=== PATIENT | female | born 1950 | race Caucasian/White ===

== ENCOUNTER 2024-02-13 20:57 | Emergency (ER) | payer OTHER, SELFPAY ==
[2024-02-13] VITALS (11 sets, daily range): BP systolic 111–175; BP diastolic 81–99; PULSE 73–102; RESP 14–30; TEMP 36.7–36.9; O2SAT 89–98; BMI 25.7; BMI 24.9
--- NOTE | 2024-02-13 21:27 | EKG_ITS ---
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
--- NOTE | 2024-02-13 21:27 | XR_ITS ---
Examination: AP chest single view Technique: AP portable upright chest single view Exam date and time: February 13, 2024 2134 hrs. Indications: Coughing shortness of breath today. Findings: Normal heart size. No pneumonia or pulmonary edema Moderate osteopenia Impression: No pneumonia identified
--- NOTE | 2024-02-13 21:28 | EDNOTE_ITS ---
ED General RME/HPI General Chief complaint: Shortness of Breath/Dyspnea Stated complaint: SHORTNESS OF BREATH Time Seen by Provider: 02/13/24 21:22 Arrival date/time: 02/13/24 20:57 CC: Shortness of breath HPI ongoing for 1 week with slow progression of severity. The patient states she sleeps upright in a [place] secondary to a bad back but states lately it has been benefiting for her shortness of breath as well. Patient denies fever but states that she has been feeling warm at home patient denies productive cough chest pain. Patient stopped smoking 1 week ago smoking approximately half to 1 pack a day. Related Data Previous Rx's ?Medication ?Instructions ?Recorded prednisone 50 mg tablet 50 mg PO QDAY #5 tabs 01/20/20 hydrocodone 5 mg-acetaminophen 325 1 tab PO Q8H PRN pain #10 tabs 09/16/22 mg tablet ofloxacin 0.3 % eye drops (Ocuflox) 2 drp ophthalmic (eye) QID #10 mL 09/16/22 prednisone 20 mg tablet See Taper PO BID 3 days #6 tabs 02/13/24 Allergies Allergy/AdvReac Type Severity Reaction Status Date / Time aspirin Allergy Severe Swelling Verified 12/22/23 15:35 of Lip/Tongue/Throat erythromycin base Allergy Severe Hives Verified 12/22/23 15:35 Penicillins Allergy Severe Hives Verified 12/22/23 15:35 Sulfa (Sulfonamide Allergy Verified 12/22/23 15:35 Antibiotics) Review of Systems Review of Systems Narrative Review of Systems: GEN: No fever, no chills, no weight loss EYES: No discharge, no visual changes, no pain HEENT: No ear pain, no congestion, no sore throat PULM: + shortness of breath, no cough, no congestion CV: No chest pain, no dyspnea on exertion, no palpitations GI: No nausea, no vomiting, no diarrhea, no pain, no constipation : No frequency, no urgency, no dysuria MUSC/SKEL: No joint pain, no back pain SKIN: No rash PSYCH: No hallucinations, no depression HEME/LYMPH: No easy bleeding or bruising tendencies NEURO: No weakness, no headache Past Medical History Past Medical History NEUROLOGIC: Negative Neurological Disorders, Cerebrovascular Accident or Alzheimer's Disease CARDIAC: Negative Cardiac Disorders, Myocardial Infarction, Angina or Congestive Heart Failure RESPIRATORY: Positive Chronic Obstructive Pulmonary Disease (COPD), Asthma and Pneumonia GASTROINTESTINAL: Negative Gastrointestinal Disorders, Liver Cancer or Pancreatic Cancer GENITOURINARY: Negative Genitourinary Disorders or Renal Disease REPRODUCTIVE: Positive Previous Pregnancies MUSCULOSKELETAL: Negative Musculoskeletal Disorders or Muscular Dystrophy ENT: Negative Blind or Deafness ENDOCRINE: Negative Endocrine Disorders, Diabetes Mellitus Type 1 or Diabetes Mellitus Type 2 OTHER HISTORY: Positive Cosmetic Surgery (HX breast reduction); Negative Down Syndrome or Developmental Delay Surgical History SURGICAL: Positive Hysterectomy Social History SMOKING STATUS: Current every day smoker ED Exam Narrative Physical exam: [General: In mild discomfort but not in any acute distress Head normocephalic HEENT: Within acceptable limits Neck is supple nontender Chest equal chest rise nontender to palpation Respiratory: Mild tachypnea, audible expiratory crackles, wheezing in the upper lobes. CV: Rate rhythm is regular no murmurs rubs or clicks Abdomen is distended secondary to body habitus soft nontender no masses positive bowel sounds all 4 quadrants Back: No CVA tenderness no spinous process tenderness from cervical spine thoracic and lumbar spine Skin: Intact no petechiae rash induration ulceration or crepitus Extremities: Moving all extremity against resistance cap refill less than 2 seconds neurosensory intact. No lower extremity edema Neuro: Awake alert oriented x3 Glascow coma 15 no focal deficits] Course Quality Measures none Orders Category Date Time Status EKG (ED ONLY) *Do not use* NOW Care 02/13/24 21:27 Completed EKG (ED Only) Stat Exams 02/13/24 21:27 Draft XR chest 1V Stat Exams 02/13/24 21:27 Completed B-Type Natriuretic Peptide Stat Lab 02/13/24 21:51 Completed CBC Stat Lab 02/13/24 21:51 Completed Comprehensive Metabolic Panel Stat Lab 02/13/24 21:51 Completed Drug Screen,Urine Stat Lab 02/13/24 01:49 Completed LDH (Lactate Dehydrogenase) Stat Lab 02/13/24 21:51 Completed Magnesium Stat Lab 02/13/24 21:51 Completed Partial Thromboplastin Time Stat Lab 02/13/24 21:51 Completed Prothrombin Time with INR Stat Lab 02/13/24 21:51 Completed Troponin I Stat Lab 02/13/24 21:51 Completed Urinalysis Stat Lab 02/13/24 01:49 Completed ALBUTEROL RT 0.5ml [Proventil Rt 0.5ml] Med 02/13/24 21:55 Discontinued 10 mg INH X1 ONE ALBUTEROL RT 0.5ml [Proventil Rt 0.5ml] Med 02/13/24 22:00 Discontinued 2.5 mg .ROUTE .STK-MED ONE ALBUTEROL RT 0.5ml [Proventil Rt 0.5ml] Med 02/13/24 21:51 Discontinued 5 mg INH X1 ONE ALBUTEROL RT 5 ml [Proventil Rt 5 ml] Med 02/13/24 21:27 Discontinued 5 mg INH X1 ONE Albuterol/Ipratr Rt Kimber [Duoneb Rt Kimber] Med 02/14/24 04:05 Discontinued 3 ml INH X1 ONE MethylPREDNISolone.* [SoluMEDROL Inj] Med 02/13/24 21:27 Discontinued 125 mg IVP X1 ONE Sodium Chloride Rt Kimber 0.9% [NS Rt Kimber 0.9%] Med 02/13/24 21:51 Discontinued 3 ml INH PRN PRN Sodium Chloride Rt Kimber 0.9% [NS Rt Kimber 0.9%] Med 02/13/24 21:55 Discontinued 3 ml INH PRN PRN Vital Signs Vital signs: Vital Signs Temperature 98.4 F 02/13/24 21:00 Pulse Rate 84 02/13/24 21:00 Respiratory Rate 20 02/13/24 21:00 Blood Pressure 175/81 H 02/13/24 21:00 Pulse Oximetry (%) 94 L 02/13/24 21:00 Oxygen Delivery Method Room Air 02/13/24 21:00 [facility] Patient data External records reviewed:: [facility] previous records and EMS form Clinical information provided by:: patient and EMS Social determinants that could affect healthcare access:: none Patient has the following chronic illnesses:: Cigarette smoking for the past 50+ years How is presenting disease/condition affected by chronic disease/condition?: e xacerbated by Evaluation data The following diagnostics were reviewed and interpreted by me:: lab results, radiology exam(s) and EKG tracing(s) Lab and/or radiology exams considered but not ordered:: CBC shows no significant leukocytosis anemia thrombocytopenia CMP shows no acute electrolyte imbalances renal impairment transaminitis or T. bili elevation Chest x-ray is inter by me read by radiology as negative for any acute finding. Interpretation Summary: COPD exacerbation Medications Medications considered but not ordered:: None Medication administrations:: Medication Administration History Discontinued Medications Albuterol (Albuterol Rt 25 Mg/5 Ml Nebu) 5 mg INH X1 ONE Stop: 02/13/24 21:28 Last Admin: 02/13/24 22:26 Dose: Not Given Documented By: JOAO Non-Admin Reason: Duplicate Medication on eMAR Albuterol (Albuterol Rt 2.5 Mg/0.5 Ml Nebu) 5 mg INH X1 ONE Stop: 02/13/24 21:52 Last Admin: 02/13/24 22:26 Dose: Not Given Documented By: JOAO Non-Admin Reason: Duplicate Medication on eMAR Albuterol (Albuterol Rt 2.5 Mg/0.5 Ml Nebu) 10 mg INH X1 ONE Stop: 02/13/24 21:56 Last Admin: 02/13/24 21:57 Dose: 10 mg Documented By: MALAIKA Albuterol (Albuterol Rt 2.5 Mg/0.5 Ml Nebu) Confirm Administered Dose 2.5 mg .ROUTE .STK-MED ONE Stop: 02/13/24 22:01 Last Admin: 02/13/24 22:10 Dose: Not Given Documented By: MALAIKA Non-Admin Reason: Other, see note Albuterol/Ipratropium (Albuterol/Ipratropium (Duoneb) Rt Kimber 3 Ml Nebu) 3 ml INH X1 ONE Stop: 02/14/24 04:06 Last Admin: 02/14/24 04:29 Dose: 3 ml Documented By: MALAIKA Methylprednisolone Sodium Succinate (Methylprednisolone Sod Succ 62.5 Mg/Ml 2ml Vial) 125 mg IVP X1 ONE Stop: 02/13/24 21:28 Last Admin: 02/13/24 21:48 Dose: 125 mg Documented By: JOAO Sodium Chloride (Sodium Chloride Rt Kimber 0.9% 3 Ml Nebu) 3 ml INH PRN PRN PRN Reason: SOLN Stop: 03/14/24 21:50 Sodium Chloride (Sodium Chloride Rt Kimber 0.9% 3 Ml Nebu) 3 ml INH PRN PRN PRN Reason: SOLN Stop: 03/14/24 21:54 None Consultations Consultation(s) initiated? (list below): No Diagnosis Differential Diagnosis ED Complaint MDM: Pneumonia COPD exacerbation CHF Most likely diagnosis given after review of the tests above:: COPD Admission Indicated Admission indicated?: not indicated Explain why admission is indicated or not indicated:: Stable for outpatient follow-up Admission Request Was there a request for admission?: No Disposition Plan Disposition Plan: Discharge Discharge Attestation Discharge Attestation: The patient and all family members were given an opportunity to ask questions and understood the discharge instructions. Discharge instructions specifically effects, indications for sooner follow up or return to the emergency department, and the expected course of current diagnosis. Patient condition: Stable Medical Decision Making Differential Diagnosis Differential Diagnosis: Pneumonia COPD exacerbation CHF Lab Data 02/13/24 21:51 02/13/24 21:51 Labs: Lab Results 02/13/24 02/13/24 Range/Units 01:49 21:51 WBC 7.8 (3.6-11.0) Thou/mm3 RBC 4.56 (4.00-5.20) Miln/mm3 Hgb 14.1 (12.0-16.0) g/dL Hct 39.6 (36.0-46.0) % MCV 87 (80-100) fL MCH 30.9 (25.0-35.0) pg MCHC 35.6 (31.0-37.0) g/dl RDW Std Deviation 40.4 (36.4-46.3) fL Plt Count 233 (140-440) Thou/mm3 Neut % (Auto) 48 (37-80) % Lymph % (Auto) 41 (10-50) % [place] % (Auto) 7 (0-12) % Eos % (Auto) 4 (0-10) % Baso % (Auto) 1 (0-2.5) % Neut # (Auto) 3.8 (1.8-7.7) Thou/mm3 Lymph # (Auto) 3.2 (1.0-4.8) Thou/mm3 [place] # (Auto) 0.5 (0.0-0.8) Thou/mm3 Eos # (Auto) 0.3 (0.0-0.5) Thou/mm3 Baso # (Auto) 0.1 (0.0-0.2) Thou/mm3 Immature Gran # (Auto) 0.03 H (0.00-0.00) Thou/mm3 Absolute Nucleated RBC 0.00 (0.00-0.00) Thou/mm3 Immature Gran % 0 (0-0) % Nucleated RBC % 0 (0) /100 WBC PT 10.9 (9.0-12.2) Seconds INR 1.0 (0.9-1.3) APTT 26.9 (22.0-36.0) Seconds Sodium 141 (136-145) mMol/L Potassium 3.7 (3.4-5.1) mMol/L Chloride 104 (98-107) mMol/L Carbon Dioxide 25.5 (20.0-31.0) mMol/L Anion Gap 12 (7-16) BUN 12 (9-23) mg/dL Creatinine 0.9 (0.6-1.3) mg/dL Estim Creat Clear Calc 52.0 L (>60) mL/min eGFR > 60 (60 - ) See Note BUN/Creatinine Ratio 13 (12-20) Ratio Glucose 121 H (74-106) mg/dL Calculated Osmolality 281 (275-295) Calcium 10.2 (8.3-10.6) mg/dL Corrected Calcium 10.2 H (8.5-10.1) mg/dL Magnesium 2.2 (1.6-2.6) mg/dL Total Bilirubin 0.5 (0.3-1.2) mg/dL AST 22 (0-34) U/L ALT 22 (10-49) U/L Alkaline Phosphatase 69 (46-116) U/L Lactate Dehydrogenase 204 (120-246) U/L Troponin I < 0.020 (0.0-0.045) ng/mL B-Natriuretic Peptide < 20 (0-100) pg/mL Total Protein 7.9 (5.7-8.2) gm/dL Albumin 4.6 (3.4-4.8) gm/dL Globulin 3.3 (2.3-3.5) gm/dL Albumin/Globulin Ratio 1.4 (1.2-2.2) Ur Collection Type Clean Catch Urine Color Lt-Yellow (Lt Yel-Yel) Urine Clarity Clear (Clear/Hazy) Urine pH 6.5 (5.0-7.0) Ur Specific [place] 1.026 (1.001-1.035) Urine Protein 1+ A (Neg - Trace) Urine Glucose (UA) Negative (Negative) Urine Ketones 1+ A (Negative) Urine Blood Negative (Negative) Urine Nitrite Negative (Negative) Urine Bilirubin Negative (Negative) Urine Urobilinogen (Auto) Negative (0.0-1.0) mg/dL Ur Leukocyte Esterase Positive (Negative) Urine RBC 25 H (0-3) /hpf Urine WBC 10 H (0-5) /hpf Ur Squamous Epith Cells 2 (0-5) /hpf Calcium Oxalate Crystal 2+ A (None) Urine Bacteria None (None) Urine Opiates Screen Negative (Negative) Urine Fentanyl Screen Negative (Negative) Ur Barbiturates Screen Negative (Negative) U Amphetamin/Meth Scrn Negative (Negative) U Benzodiazepines Scrn Negative (Negative) U Cocaine Metab Screen Negative (Negative) U Marijuana (THC) Screen Positive A (Negative) Discharge Plan Plan Patient Disposition: HOME (Self Care) Patient condition on transfer: Stable Prescriptions/Referrals Prescriptions/Med Rec: New prednisone 20 mg tablet See Taper PO BID 3 Days Qty: 6 0RF Taper: Prednisone Taper 20 mg DAILY for 2 Days and 0 Hour 10 mg DAILY for 2 Days and 0 Hour 5 mg DAILY for 7 Days and 0 Hour No Action prednisone 50 mg tablet 50 mg PO QDAY Qty: 5 0RF ofloxacin [Ocuflox] 0.3 % drops 2 drp ophthalmic (eye) QID Qty: 10 0RF Rx Instructions: left eye hydrocodone-acetaminophen 5-325 mg tablet 1 tab PO Q8H MDD 3 tablets/day PRN (Reason: pain) Qty: 10 0RF Referrals: Wyatt Mora MD [Physician] - In 1 week No Primary/Family,Physician [Primary Care Provider] - In 1 week Problem List Clinical Impression: COPD exacerbation Patient/Caregiver Discharge Instructions Education Materials: COPD Meds Additional Instructions: That she stopped smoking 7 days ago's is great continue to not smoke, take all the medications as prescribed use your inhaler as needed if there is a worsening of symptoms follow-up with your primary care doctor or return the emergency room for reevaluation. Print Language: Bhutanese Stand Alone Forms: Steffany Award Info., Work/School Release, Patient Portal Info Letter MÓNICA/JOVANA Supervising Physician MÓNICA/JOVANA Supervising Physician: Louis Arredondo ENP
[2024-02-13] MEDS: MethylPREDNISolone SOD SUCC 62.5 MG/ML 2ML VIAL 125 MG IVP (21:48)
[2024-02-13] MEDS: ALBUTEROL RT 2.5 MG/0.5 ML NEBU 10 MG INH (21:57)
--- NOTE | 2024-02-13 22:02 | PC.RT ---
neb got accidentally knocked off mask shortly after beginning tx. Part of meds spilled onto pt's lap. 2 albuterol over ridden and pulled from pyxis to replace meds lost in spill.
[2024-02-13 22:43] LABS: Basophils # (Auto) 0.1 Thou/mm3 (0.0-0.2); Basophils % (Auto) 1 % (0-2.5); Eosinophils # (Auto) 0.3 Thou/mm3 (0.0-0.5); Eosinophils % (Auto) 4 % (0-10); Hematocrit 39.6 % (36.0-46.0); Hemoglobin 14.1 g/dL (12.0-16.0); Immature Granulocytes % (Auto) 0 % (0-0); Immature Granulocytes Auto 0.03 Thou/mm3 (0.00-0.00); Lymphocytes # (Auto) 3.2 Thou/mm3 (1.0-4.8); Lymphocytes % (Auto) 41 % (10-50); Mean Corpuscular HGB Conc 35.6 g/dl (31.0-37.0); Mean Corpuscular Hemoglobin 30.9 pg (25.0-35.0); Mean Corpuscular Volume 87 fL (80-100); Monocytes # (Auto) 0.5 Thou/mm3 (0.0-0.8); Monocytes % (Auto) 7 % (0-12); Neutrophils # (Auto) 3.8 Thou/mm3 (1.8-7.7); Neutrophils % (Auto) 48 % (37-80); Nucleated Red Blood Cell % 0 /100 WBC (0); Platelet Count 233 Thou/mm3 (140-440); RDW Standard Deviation 40.4 fL (36.4-46.3); Red Blood Count 4.56 Miln/mm3 (4.00-5.20); White Blood Count 7.8 Thou/mm3 (3.6-11.0)
--- NOTE | 2024-02-13 22:54 | PD.EDADDENDU ---
Emergency Room Addendum <Donna Levy MD - Last Filed: 02/14/24 04:38> Addendum Narrative: 2300: Care assumed from Louis Arredondo NP. Past medical, surgical, social and family history reviewed. Vitals and home medications reviewed. Results and treatment plan discussed. I will assume the care of the patient at this time and will follow the patient, pending re-evaluation. Coughing but otherwise no wheezing. No pedal edema. Patient is not diaphoretic and appears well. Patient lungs are clear. No longer wheezing. She is 98% on room air after an additional DuoNeb. The patient is ambulatory and able to walk. Respiratory is at the bedside and agrees. <Beverly Schuster - Last Filed: 02/13/24 23:10> Addendum Narrative: 2300: Care assumed from Louis Arredondo NP. Past medical, surgical, social and family history reviewed. Vitals and home medications reviewed. Results and treatment plan discussed. I will assume the care of the patient at this time and will follow the patient, pending re-evaluation. MD Attestation <Beverly Schuster - Last Filed: 02/13/24 23:10> Attestation ? Scribe Attestation: aRnd, Juanis Schuster, am scribing for and in the presence of Dr. Hartmann. Provider Notation: Although this document has been carefully reviewed, there may still be some phonetic and other typographical errors. These errors are purely grammatical due to imperfections in the software program and should not be construed in any way to compromise the substance of the patient's medical care during this visit.
[2024-02-13 23:02] LABS: Partial Thromboplastin Time 26.9 Seconds (22.0-36.0); Prothrombin Time 10.9 Seconds (9.0-12.2)
[2024-02-13 23:15] LABS: B-Type Natriuretic Peptide < 20 pg/mL (0-100)
[2024-02-13 23:20] LABS: Alanine Aminotransferase 22 U/L (10-49); Albumin, Serum 4.6 gm/dL (3.4-4.8); Anion Gap 12 (7-16); Aspartate Amino Transferase 22 U/L (0-34); BUN/Creatinine Ratio 13 Ratio (12-20); Bilirubin,Total 0.5 mg/dL (0.3-1.2); Blood Urea Nitrogen 12 mg/dL (9-23); Calcium 10.2 mg/dL (8.3-10.6); Carbon Dioxide 25.5 mMol/L (20.0-31.0); Chloride 104 mMol/L (98-107); Creatinine (Component) 0.9 mg/dL (0.6-1.3); Glucose 121 mg/dL (74-106); Magnesium 2.2 mg/dL (1.6-2.6); Osmolality,Calculated 281 (275-295); Potassium 3.7 mMol/L (3.4-5.1); Sodium 141 mMol/L (136-145); Total Protein 7.9 gm/dL (5.7-8.2); Troponin I < 0.020 ng/mL (0.0-0.045); eGFR > 60 See Note
[2024-02-13 23:21] LABS: Albumin/Globulin Ratio 1.4 (1.2-2.2); Alkaline Phosphatase 69 U/L (46-116); Calcium (Corrected) 10.2 mg/dL (8.5-10.1); Globulin 3.3 gm/dL (2.3-3.5)
[2024-02-13 23:32] LABS: LDH (Lactate Dehydrogenase) 204 U/L (120-246)
[2024-02-14] VITALS (20 sets, daily range): BP systolic 127–167; BP diastolic 83–96; PULSE 97–103; RESP 16–32; TEMP 36.6; O2SAT 88–99
[2024-02-14 01:54] LABS: Collection Type, Urine Clean Catch
[2024-02-14 01:58] LABS: Bilirubin,Urine Negative (Negative); Blood,Urine Negative (Negative); Calcium Oxalate Crystals,Urine 2+; Clarity,Urine Clear (Clear/Hazy); Color,Urine Lt-Yellow (Lt Yel-Yel); Glucose, Urine Negative (Negative); Ketones,Urine 1+ (Negative); Leukocyte Esterase,Urine Positive (Negative); Nitrite,Urine Negative (Negative); PH,Urine 6.5 (5.0-7.0); Protein,Urine 1+ (Neg - Trace); RBC,Urine 25 /hpf (0-3); Specific Gravity,Urine 1.026 (1.001-1.035); Squamous Epithelial Cell,Urine 2 /hpf (0-5); Urobilinogen,Urine Negative mg/dL (0.0-1.0); WBC,Urine 10 /hpf (0-5)
[2024-02-14 02:06] LABS: Amphetamine/Methamp Scrn,U Negative (Negative); Barbiturate Screen,Urine Negative (Negative); Benzodiazepines Screen,Urine Negative (Negative); Benzoylecgonine Screen, Ur Negative (Negative); Fentanyl Screen,Urine Negative (Negative); Opiate Screen,Urine Negative (Negative); THC Screen,Urine Positive (Negative)
[2024-02-14] MEDS: ALBUTEROL/IPRATROPIUM (Duoneb) RT SOL 3 ML NEBU INH (04:29)
== END 2024-02-14 05:02 | disposition home or self-care (01) ==
PROVIDERS: Registered Nurse General Practice; Emergency Provider Emergency Medicine
DX: J44.1 Chronic obstructive pulmonary disease with (acute) exacerbation (principal)
CPT/HCPCS: 36415; 71045; 80053; 80307; 81001; 83615; 83735; 83880; 84484; 85025; 85610; 85730; 93005; 94640; 94644; 96374; 99284; A9270; J2919

== ENCOUNTER 2024-07-13 02:01 | Emergency (ER) | payer OTHER, SELFPAY ==
[2024-07-13 02:47] VITALS: PULSE 98; RESP 22; O2SAT 94
--- NOTE | 2024-07-13 03:14 | EDNOTE_ITS ---
ED SOB =RME/HPI General Chief Complaint: Shortness of Breath/Dyspnea Stated Complaint: SHORTNESS OF BREATH Time Seen by Provider: 07/13/24 03:03 Arrival date/time: 07/13/24 02:01 RME / HPI RME / HPI Narrative: The patient is a 73 year old female with PMH of COPD presented with c/o SOB worsening for past 2 weeks. She was prescribed a different medicine for her COPD by her licensed clinical social worker which was not covered by her insurance, so she was using only combivent, and she ran out of Ajubeo. She was given breathing treatment by EMS and reported that her symptoms improved after that. She denies any headache, dizziness, chest pain, sick contact, abdominal pain, any changes in bowel or bladder habit, fever or nausea or vomiting. Related Data Previous Rx's ?Medication ?Instructions ?Recorded prednisone 50 mg tablet 50 mg PO QDAY #5 tabs hydrocodone 5 mg-acetaminophen 325 1 tab PO Q8H PRN pa in #10 tabs 09/16/22 mg tablet ofloxacin 0.3 % eye drops (Ocuflox) 2 drp ophthalmic ( eye) QID #10 mL 09/16/22 ciclesonide 160 mcg/actuation 1 puff inhalation BID #6 .1 grams 07/13/24 aerosol inhaler (Alvesco) salmeterol 50 mcg/dose blister 1 inh inhalation QDAY # 30 ea 07/13/24 powder for inhalation Allergies Allergy/AdvReac Type Severity Reaction Status Date / Time aspirin Allergy Severe Swelling Verified 12/22/23 15:35 of Lip/Tongue/Throat erythromycin base Allergy Severe Hives Verified 12/22/23 15:35 Penicillins Allergy Severe Hives Verified 12/22/23 15:35 Sulfa (Sulfonamide Allergy Verified 12/22/23 15:35 Antibiotics) Review of Systems Review of Systems Systems Reviewed: All systems reviewed, normal except as documented Past Medical History Past Medical History NEUROLOGIC: Negative Neurological Disorders, Cerebrovascular Accident or Alz heimer's Disease CARDIAC: Negative Cardiac Disorders, Myocardial Infarction, Angina or Congestive Heart Failure RESPIRATORY: Positive Chronic Obstructive Pulmonary Disease (COPD), Asthma and Pneumonia GASTROINTESTINAL: Negative Gastrointestinal Disorders, Liver Cancer or Pancreatic Cancer GENITOURINARY: Negative Genitourinary Disorders or Renal Disease REPRODUCTIVE: Positive Previous Pregnancies MUSCULOSKELETAL: Negative Musculoskeletal Disorders or Muscular Dystrophy ENT: Negative Blind or Deafness ENDOCRINE: Negative Endocrine Disorders, Diabetes Mellitus Type 1 or Diabetes Mellitus Type 2 OTHER HISTORY: Positive Cosmetic Surgery (HX breast reduction); Negative Down Syndrome or Developmental Delay Surgical History SURGICAL: Positive Hysterectomy Social History SMOKING STATUS: Current every day smoker ED Exam Narrative Physical exam: General: Elderly, cooperative female, no acute distress, Alert and Oriented x 3 HEENT: Moist mucous membranes, oropharynx clear Neck: Supple, No masses, No JVD CVS: S1S2 Regular rate and rhythm, No murmurs, rubs or gallops Lungs: Clear to auscultation with no accessory use, mild wheeze but no rhonchi Abd: Soft, NT/ND, +BS, no organomegaly Ext: No edema, warm and well perfused Skin: No rash Psych: Appropriate mood and affect Course Quality Measures none Orders Category Date Time Status Albuterol/Ipratr Rt Kimber [Duoneb Rt Kimber] Med 07/13/24 03:12 Discontinued 3 ml INH X1 ONE MethylPREDNISolone. [SoluMEDROL Inj] Med 07/13/24 03:12 Discontinued 40 mg IVP X1 ONE Shortness of Breath / Dyspnea MDM Narrative MDM Narrative:: The patient is a 73 year old female with PMH of COPD presented with c/o SOB worsening for past 2 weeks. She was prescribed a different medicine for her COPD by her licensed clinical social worker which was not covered by her insurance, so she was using only combivent, and she ran out of TreddcConmio. She was given breathing treatment by EMS and reported that her symptoms improved after that. She denies any headache, dizziness, chest pain, sick contact, abdominal pain, any changes in bowel or bladder habit, fever or nausea or vomiting. Her vitals were fairly stable saturating 92% on 3L NC. She was given Duoneb INH x1 and methylprednisolone 40mg IV x1. Her symptoms improved after that and was planned to discharge home. Patient data External records reviewed:: [facility] previous records Clinical information provided by:: patient and EMS Social determinants that could affect healthcare access:: none Patient has the following chronic illnesses:: See above How is presenting disease/condition affected by chronic disease/condition?: exacerbated by Evaluation data The following diagnostics were reviewed and interpreted by me:: other (specify) (None) Lab and/or radiology exams considered but not ordered:: None Interpretation Summary: None Medications / Prescriptions Medications or Prescriptions considered but not ordered:: None Medication administrations:: Medication Administration History Discontinued Medications Albuterol/Ipratropium (Albuterol/Ipratropium (Duoneb) Rt Kimber 3 Ml Nebu) 3 ml INH X1 ONE Stop: 07/13/24 03:13 Methylprednisolone Sodium Succinate (Methylprednisolone Sod Succ 40 Mg Vial) 40 mg IVP X1 ONE Stop: 07/13/24 03:13 Last Admin: 07/13/24 03:31 Dose: 40 mg Documented By: SF See above Consultations Consultation(s) initiated? (list below): No Diagnosis Shortness of Breath Differential Diagnosis: acute exacerbation of chronic ob structive airways disease and community acquired pneumonia Most likely diagnosis given after review of the tests above:: Acute exacerbation of COPD Admission Indicated Admission indicated?: not indicated Explain why admission is indicated or not indicated:: Improved after initial treatment and stable to discharge home. Admission Request Was there a request for admission?: No Disposition Plan Disposition Plan: Discharge Discharge Attestation Discharge Attestation: The patient and all family members were given an opportunity to ask questions and understood the discharge instructions. Discharge instructions specifically effects, indications for sooner follow up or return to the emergency department, and the expected course of current diagnosis. Patient condition: Stable Discharge Plan Plan Patient Disposition: HOME (Self Care) Prescriptions/Referrals Prescriptions/Med Rec: New Alvesco 160 mcg/actuation HFA aerosol inhaler 1 puff inhalation BID Qty: 6.1 3RF salmeterol 50 mcg/dose blister with device 1 inh inhalation QDAY Qty: 30 2RF No Action prednisone 50 mg tablet 50 mg PO QDAY Qty: 5 0RF ofloxacin [Ocuflox] 0.3 % drops 2 drp ophthalmic (eye) QID Qty: 10 0RF Rx Instructions: left eye hydrocodone-acetaminophen 5-325 mg tablet 1 tab PO Q8H MDD 3 tablets/day PRN (Reason: pain) Qty: 10 0RF Problem List Clinical Impression: Acute exacerbation of chronic obstructive airways disease Patient/Caregiver Discharge Instructions Discharge Activity: activity as tolerated Education Materials: Chronic Lung Disease Exercise Log, ED COPD Flare Additional Instructions: Please follow-up with your PCP within 1 week of discharge You have been started on: -Alvesco 1 puff twice daily to be continued -Salmeterol 1 puff daily to be continued Continue taking all other medicines as prescribed -Recommended to return back to emergency department if your symptoms persists or worsens Print Language: Belarusian Stand Alone Forms: Steffany Award Info., Patient Portal Info Letter MD Attestation MD Attestation I, Dr. Kent, have reviewed the history, exam, and assessment of the patient. I have evaluated the patient independently and agree with the plan of care documented by the resident Dr. Perry. All diagnostic studies were reviewed and discussed. I confirm the diagnosis as documented by the resident. I was present during the Medical Decision Making for this patient. The patient?s plan of care was created between myself and the resident and consistent with our discussion of the patient?s case.
[2024-07-13 04:47] VITALS: BP 150/77; PULSE 91; RESP 16; TEMP 36.9; O2SAT 92
== END 2024-07-13 04:52 | disposition home or self-care (01) ==
LOC: SERX 05:04
PROVIDERS: Emergency Provider Student in an Organized Health Care Education/Training Program
DX: J44.1 Chronic obstructive pulmonary disease with (acute) exacerbation (principal)
CPT/HCPCS: 96374; 99284; A9270; J2919